=== PATIENT | male | born 1955 | race Caucasian/White ===

== ENCOUNTER 2018-10-31 05:34 | Day surgery (SDC) | payer OTHER ==
--- NOTE | 2018-10-26 14:08 | RAD ---
EXAM DESCRIPTION: Chest,2 Views CLINICAL HISTORY: Pre op for surgery 10/31/18 COMPARISON: None TECHNIQUE: PA/lateral FINDINGS: There is no acute appearing cardiac or pulmonary abnormality. Heart size is normal with normal pulmonary vascularity. No pleural effusion or pneumothorax. Lungs are clear with no consolidating infiltrate. Lateral view shows intact sternum and T-spine. Lungs appear hyperexpanded on lateral view IMPRESSION: No acute process is identified in the chest. Electronically signed by: Grzegorz Melton MD 10/26/2018 2:05 PM [employer]IOR [employer]
[2018-10-31] MEDS ORDERED: LACTATED RINGERS 1,000 ML ONE (07:10)
[2018-10-31] MEDS ORDERED: levoFLOXacin 500MG IV 100 ML IVPB ONE (07:11)
[2018-10-31] MEDS ORDERED: METOCLOPRAMIDE HCL INJ 10 MG/2 ML VIAL ONE ×2 (08:07→08:10)
[2018-10-31] MEDS ORDERED: BUPIVACAINE 0.25% W/EPI 50 ML VIAL INJ ONE (08:13)
[2018-10-31] MEDS ORDERED: fentaNYL CITRATE INJ 50 MCG/ML AMP ONE (09:46)
[2018-10-31] MEDS ORDERED: ROCURONIUM BROMIDE 10 MG/ML VIAL ONE (09:46)
[2018-10-31] MEDS ORDERED: MIDAZOLAM INJ 2 MG/2 ML VIAL ONE (09:46)
[2018-10-31] MEDS ORDERED: DEXAMETHASONE INJ 10 MG/ML VIAL IV ONE (10:00)
[2018-10-31] MEDS ORDERED: ePHEDrine SULF 50 MG/ML IV ONE (10:00)
[2018-10-31] MEDS ORDERED: SODIUM CHLORIDE 0.9% 50 ML VIAL INJ ONE (10:00)
[2018-10-31] MEDS ORDERED: PROPOFOL 200 MG/20 ML VIAL IV ONE (10:00)
[2018-10-31] MEDS ORDERED: LIDOCAINE 1% 10 ML VIAL INJ ONE (10:00)
[2018-10-31] MEDS ORDERED: raNITIdine HCL INJ 25 MG/ML VIAL IV ONE (10:00)
[2018-10-31] MEDS ORDERED: METOCLOPRAMIDE HCL INJ 10 MG/2 ML VIAL IV ONE (10:00)
[2018-10-31] MEDS ORDERED: HYDROmorphone HCL INJ 2 MG/ML VIAL ONE (10:37)
[2018-10-31] MEDS ORDERED: SUGAMMADEX SODIUM 200 MG/2 ML VIAL IV ONE (11:01)
[2018-10-31] MEDS ORDERED: ELECTROLYTE-A 1,000 ML IVS ONE (11:01)
[2018-10-31] MEDS ORDERED: LACTATED RINGERS 1,000 ML IVS ONE (11:54)
[2018-10-31 12:09] VITALS: O2SAT 98
[2018-10-31] MEDS ORDERED: HYDROcodone 5MG/APAP 325MG 1 EA TAB ONE (13:03)
[2018-10-31] MEDS ORDERED: HYDROcodone 5MG/APAP 325MG 1 EA TAB PO ONE (13:05)
--- NOTE | 2018-10-31 13:53 | OP ---
DATE OF PROCEDURE: 10/31/18 PREOPERATIVE DIAGNOSIS: 1. Right inguinal hernia. POSTOPERATIVE DIAGNOSIS: 1. Right inguinal hernia, direct. PROCEDURE: 1. Repair of right inguinal hernia with Surgimesh graft. SURGEON: Mu Coyne MD. GEL COAT SPRAYER: None. ANESTHESIA: General endotracheal anesthesia and local infiltration of 0.25% Marcaine with epinephrine. INDICATION: The patient is a 63-year-old male who has had a tender mass in his right groin. The patient was brought to the Surgical Suite today for hernia repair after the risks, benefits and alternatives to the procedure were discussed and accepted. FINDINGS: The patient had no indirect component. He had generalized weakness of the floor of his canal, almost all the way from the pubic tubercle to the vessels. There was no mass or pathology identified digitally through the defect. PROCEDURE: After adequate general endotracheal anesthesia was obtained, the patient was prepped and draped in the usual sterile manner. At this point, a surgical time-out was taken. The right lower quadrant incision was formed, first with infiltration of anesthesia, then with a sharp knife. Dissection was carried down through the skin and subcutaneous tissue to the external oblique fascia using electrocautery and blunt dissection. The external oblique fascia was then opened in the direction of the fibers through the external inguinal ring. The external oblique fascia was then dissected free from the floor of the canal and the cord using blunt dissection and some electrocautery. The cord was then dissected free from the floor of the canal with blunt dissection. A half inch Mikey drain was placed around it for traction. The cord was then explored in the usual manner with two small lipomas removed using electrocautery and clamps and ligatures of 3-0 Vicryl. No hernia sac was identified, so at this point, the floor with the bulge was identified. It was opened. Mesh was introduced under the defect and sutured circumferentially with interrupted 2-0 Vicryl sutures. The medial aspect of the floor was also imbricated with interrupted [id number] sutures of 2-0 Vicryl. When this was done, the wound was irrigated with saline. Hemostasis was noted to be adequate. A Surgimesh patch was then sutured around the cord in the usual manner with interrupted 2-0 Vicryl sutures. When this was done, again, the wound was irrigated with saline. The cord was placed back in position in the canal. The external oblique fascia was then closed with running 3-0 Vicryl suture. The cord and subcutaneous tissue above, below and lateral to the incision were infiltrated with local anesthesia. The Latanya's fascia was approximated with interrupted 3-0 Chromic suture. Skin edges were approximated with skin stapler. The testicle was checked for position in the scrotum. Sterile pressure dressing was applied. The patient was awakened and taken to the Recovery Room in good and stable condition. Estimated blood loss was less than 50 mL. All sponge, needle and instrument counts were correct. #[id number] MTDD
[2018-10-31 14:20] VITALS: BP 137/84; TEMP 98.7
== END 2018-10-31 14:02 | disposition home or self-care (01) ==
LOC: AMB 05:34
PROVIDERS: ATTEND Surgery
DX: K40.90 Unilateral inguinal hernia, without obstruction or gangrene, not specified as recurrent (principal); J44.9 Chronic obstructive pulmonary disease, unspecified; I10 Essential (primary) hypertension; N40.0 Benign prostatic hyperplasia without lower urinary tract symptoms; F17.210 Nicotine dependence, cigarettes, uncomplicated; I45.10 Unspecified right bundle-branch block; Z94.7 Corneal transplant status; Z88.0 Allergy status to penicillin; Z88.2 Allergy status to sulfonamides; Z79.899 Other long term (current) drug therapy
CPT/HCPCS: 00830; 36415; 49505; 71046; 80048; 81001; 85025; 93005; A4216; C1781; J1100; J1170; J1956; J2250; J2765; J2780; J3010; J3490; J7120